=== PATIENT | male | born 1990 | race Caucasian/White ===

== ENCOUNTER 2016-08-28 12:48 | Emergency (ER) | payer OTHER ==
[~2016-08-28] VITALS: Ht 182.9 cm; Wt 148.0 kg
[~2016-08-28 12:48] MED LIST: BACTDS PO; CEPH-443 PO; HUM100VI14 SC; INSU100V18 SC; LISI40TA9 PO; MTF1000T PO; NAPR-260 PO
[2016-08-28 12:53] VITALS: Ht 182.9 cm; Wt 148.0 kg
[2016-08-28] MEDS ORDERED: SULF1TAB31 PO (14:19)
[2016-08-28] MEDS ORDERED: CEPH-443 PO (14:20)
[2016-08-28] MEDS ORDERED: MTF1000T PO (14:22)
[2016-08-28] MEDS ORDERED: LANT3I SC (14:23)
[2016-08-28] MEDS ORDERED: LISI40TA9 PO (14:24)
--- NOTE | 2016-08-28 14:30 | ERD ---
ER Documentation Chief Complaint Date/Time DATE: 08/28/16 TIME: 14:27 Chief Complaint abcess on lower back , also needs med refill on diabetic and htn meds HPI Is a 25-year-old male who presents the emergency department today for a medication refill of his hypertensive and diabetes medications as well as an abscess on his buttock. States he is unable to see his primary care doctor until the end of the month because he changed health insurance. States he has been out of his medication for "a week or so" denies any headache, dizziness, blurred vision, fevers or chills, nausea vomiting or diarrhea. ROS All systems reviewed and are negative except as per history of present illness. Medications Home Meds Active Scripts Lisinopril* (Lisinopril*) 40 Mg Tablet, 40 MG PO BID, #60 TAB Prov:SETH MIN-C 08/28/16 Insulin Glargine* (Lantus*) 100 Unit/Ml Soln, 50 UNIT SC QHS, #1 VIAL Prov:SETH MINC 08/28/16 Metformin* (Glucophage*) 1,000 Mg Tablet, 1000 MG PO BID, #60 TAB Prov:SETH MINC 08/28/16 Cephalexin* (Keflex*) 500 Mg Capsule, 500 MG PO QID for 7 Days, CAP Prov:SETH MIN-C 08/28/16 Sulfamethoxazole/Trimethoprim* (Bactrim Ds* Tablet) 1 Each Tablet, 1 TAB PO BID for 7 Days, #14 TAB Prov:SETH MINC 08/28/16 Naproxen* (Naprosyn*) 500 Mg Tablet, 500 MG PO BID Y for PAIN AND/OR INFLAMMATION, #30 TAB Prov:SETH MIN-C 01/01/16 Cephalexin* (Keflex*) 500 Mg Capsule, 500 MG PO QID for 7 Days, CAP Prov:SETH MIN-C 01/01/16 Sulfamethoxazole-Trimethoprim* (Bactrim* DS) 800-160 Mg Tab, 1 TAB PO BID for 7 Days, TAB Prov:SETH MINC 01/01/16 Insulin Human Isophan/Regular (Novolin 70/30) 100 Units/Ml Susp, 1 UNIT SC BID Y for give per low sliding scale bid for 30 Days, EA Prov:RICKI FRANZ NP 12/31/14 Lisinopril* (Lisinopril*) 40 Mg Tablet, 40 MG PO BID for 30 Days, TAB Prov:RICKI FRANZ NP 12/31/14 Metformin* (Glucophage*) 1,000 Mg Tablet, 1000 MG PO BID, #60 TAB Prov:RICKI FRANZ NP 12/31/14 Insuln Asp Prt/Insulin Aspart (Novolog Mix 70-30 Vial*) 100 Units/Ml Vial, 1 BOTTLE SC WITH BREAKFAST, #1 VIAL Prov:ZULEMA CHANG DO 12/01/14 Lisinopril* (Lisinopril*) 40 Mg Tablet, 40 MG PO BID, #60 TAB 1 Refill Prov:ZULEMA CHANG DO 12/01/14 Metformin* (Glucophage*) 1,000 Mg Tablet, 1000 MG PO BID, #60 TAB 1 Refill Prov:ZULEMA CHANG DO 12/01/14 Reported Medications Insuln Asp Prt/Insulin Aspart (Novolog Mix 70-30 Vial*) 100 Units/Ml Vial, 60 UNIT SC PM, VIAL 04/10/14 Insuln Asp Prt/Insulin Aspart (Novolog Mix 70-30 Vial*) 100 Units/Ml Vial, 84 UNIT SC AM, VIAL 04/10/14 Allergies Allergies: Coded Allergies: No Known Drug Allergy (Verified Allergy, Mild, 04/09/14) PMhx/Soc History of Surgery: No Anesthesia Reaction: No Hx Neurological Disorder: No Hx Respiratory Disorders: No Hx Cardiac Disorders: Yes (HTN) Hx Psychiatric Problems: No Hx Miscellaneous Medical Probl: Yes (HTN, DM) Hx Alcohol Use: No Hx Substance Use: No Hx Tobacco Use: No Smoking Status: Never smoker Physical Exam Vitals Vital Signs Date Time Temp Pulse Resp B/P Pulse Ox O2 Delivery O2 Flow Rate FiO2 08/28/16 12:53 98.1 88 18 172/90 98 Physical Exam Const: Obese, no acute distress Head: Atraumatic Eyes: Normal Conjunctiva ENT: Normal External Ears, Nose and Mouth. Neck: Full range of motion..~ No meningismus. Resp: Clear to auscultation bilaterally Cardio: Regular rate and rhythm, no murmurs Abd: Soft, non tender, non distended. Normal bowel sounds Skin: Evidence of 0.25 cm pilonidal cyst that is already draining. No localized erythema or warmth. Back: No midline or flank tenderness Ext: No cyanosis, or edema Neur: Awake and alert Psych: Normal Mood and Affect Procedures/MDM Is a 25-year-old male presents to the emergency department today for medication refill of his hypertensive and diabetes medications as well as an abscess on his buttocks. On physical exam patient had a 0.25 cm pilonidal cyst that is already draining. I do not feel he requires incision and drainage at this time. Patient is afebrile and otherwise well-appearing. Patient had these pilonidal cyst in the back. He has been instructed to follow-up with a primary care doctor for referral to general surgery. Patient had no other complaints at this time. I do not feel he requires further workup or imaging at this time. Patient indicated he takes metformin 1000 twice daily, Lantus 50 units every night and lisinopril 40 mg 1 tablet twice daily. Patient was given refills on this medication. Patient was also given Bactrim and Keflex for the pilonidal and instructed to return in 48 hours for wound check if no improvement in symptoms or worsening of symptoms. At this time the patient is stable for discharge and outpatient management. Patient should follow up with their PCP in the next 1-2 days. They may return to the emergency department sooner for any persistent or worsening of symptoms. Patient understood and agreed with the plan. Departure Diagnosis: Primary Impression: Abscess Additional Impression: Encounter for medication refill Condition: Fair Patient Instructions: Taking Medicine Safely, Pilonidal Cyst, Infected (Abx Only) Referrals: your PCP Additional Instructions: Call your primary care doctor TOMORROW for an appointment during the next 1-2 days.See the doctor sooner or return here if your condition worsens before your appointment time. Make an appointment for the end of the month for your primary care doctor and try to be seen sooner Take your medications as you have been prescribed by your primary care doctor Return in 48 hours for wound check if no improvement in symptoms or worsening of symptoms SETH MIN PA-C Aug 28, 2016 14:29
== END 2016-08-28 14:55 | disposition home or self-care (01) ==
LOC: FTE 12:48
DX: L02.212 Cutaneous abscess of back [any part, except buttock and flank] (principal); I10 Essential (primary) hypertension; E11.9 Type 2 diabetes mellitus without complications; Z76.0 Encounter for issue of repeat prescription; Z79.4 Long term (current) use of insulin; Z79.84 Long term (current) use of oral hypoglycemic drugs
CPT/HCPCS: 99281

== ENCOUNTER 2016-09-07 10:11 | Emergency (ER) | payer OTHER ==
[~2016-09-07] VITALS: Ht 182.9 cm; Wt 146.0 kg
[~2016-09-07 10:11] MED LIST changes: +LANT3I SC; +SULF1TAB31 PO
[2016-09-07 10:13] VITALS: Ht 182.9 cm; Wt 146.0 kg
[2016-09-07] MEDS ORDERED: LANT3I SC (12:00)
[2016-09-07] MEDS ORDERED: CARB15DR50 LEFT EAR (12:01)
[2016-09-07 12:36] VITALS: BP 137/73; PULSE 90; RESP 20; TEMP 98
--- NOTE | 2016-09-07 12:42 | ERD ---
ER Documentation Chief Complaint Date/Time DATE: 09/07/16 TIME: 12:38 Chief Complaint Complains of left ear pain x 3 days HPI 25-year-old male patient with a past medical history of diabetes and hypertension presents the ED complaining of water in his left ear. Reports that he has muffled hearing left ear. States that he was at the beach a few days ago and was swimming. Denies any chest pain, shortness of breath, polyuria , polydipsia, left ear pain, fever, chills, abdominal pain. Reports that he also takes Lantus and is here for a medication refill. States that he change his medical insurance, therefore is still waiting to see his primary care physician. ROS All systems reviewed and are negative except as per history of present illness. Medications Home Meds Active Scripts Carbamide Peroxide* (Debrox*) 6.5% - 15 Ml Drops, 10 DROP LEFT EAR BID, #1 BOTTLE Prov:ESPERANZA ISLAS-C 09/07/16 Insulin Glargine* (Lantus*) 100 Unit/Ml Soln, 5 UNIT SC QHS, #1 VIAL Prov:ESPERANZA ISLAS-C 09/07/16 Lisinopril* (Lisinopril*) 40 Mg Tablet, 40 MG PO BID, #60 TAB Prov:SETH MIN-C 08/28/16 Insulin Glargine* (Lantus*) 100 Unit/Ml Soln, 50 UNIT SC QHS, #1 VIAL Prov:SETH MIN-C 08/28/16 Metformin* (Glucophage*) 1,000 Mg Tablet, 1000 MG PO BID, #60 TAB Prov:SETH MIN-C 08/28/16 Cephalexin* (Keflex*) 500 Mg Capsule, 500 MG PO QID for 7 Days, CAP Prov:SETH MIN-C 08/28/16 Sulfamethoxazole/Trimethoprim* (Bactrim Ds* Tablet) 1 Each Tablet, 1 TAB PO BID for 7 Days, #14 TAB Prov:SETH MIN-C 08/28/16 Naproxen* (Naprosyn*) 500 Mg Tablet, 500 MG PO BID Y for PAIN AND/OR INFLAMMATION, #30 TAB Prov:SETH MIN PA-C 01/01/16 Cephalexin* (Keflex*) 500 Mg Capsule, 500 MG PO QID for 7 Days, CAP Prov:SETH MIN PA-C 01/01/16 Sulfamethoxazole-Trimethoprim* (Bactrim* DS) 800-160 Mg Tab, 1 TAB PO BID for 7 Days, TAB Prov:SETH MIN PA-C 01/01/16 Insulin Human Isophan/Regular (Novolin 70/30) 100 Units/Ml Susp, 1 UNIT SC BID Y for give per low sliding scale bid for 30 Days, EA Prov:RICKI FRANZ NP 12/31/14 Lisinopril* (Lisinopril*) 40 Mg Tablet, 40 MG PO BID for 30 Days, TAB Prov:RICKI FRANZ NP 12/31/14 Metformin* (Glucophage*) 1,000 Mg Tablet, 1000 MG PO BID, #60 TAB Prov:RICKI FRANZ NP 12/31/14 Insuln Asp Prt/Insulin Aspart (Novolog Mix 70-30 Vial*) 100 Units/Ml Vial, 1 BOTTLE SC WITH BREAKFAST, #1 VIAL Prov:ZULEMA CHANG DO 12/01/14 Lisinopril* (Lisinopril*) 40 Mg Tablet, 40 MG PO BID, #60 TAB 1 Refill Prov:ZULEMA CHANG DO 12/01/14 Metformin* (Glucophage*) 1,000 Mg Tablet, 1000 MG PO BID, #60 TAB 1 Refill Prov:ZULEMA CHANG DO 12/01/14 Reported Medications Insuln Asp Prt/Insulin Aspart (Novolog Mix 70-30 Vial*) 100 Units/Ml Vial, 60 UNIT SC PM, VIAL 04/10/14 Insuln Asp Prt/Insulin Aspart (Novolog Mix 70-30 Vial*) 100 Units/Ml Vial, 84 UNIT SC AM, VIAL 04/10/14 Allergies Allergies: Coded Allergies: No Known Drug Allergy (Verified Allergy, Mild, 09/07/16) PMhx/Soc History of Surgery: No Anesthesia Reaction: No Hx Neurological Disorder: No Hx Respiratory Disorders: No Hx Cardiac Disorders: Yes (HTN) Hx Psychiatric Problems: No Hx Miscellaneous Medical Probl: Yes (HTN, DM) Hx Alcohol Use: No Hx Substance Use: No Hx Tobacco Use: No Physical Exam Vitals Vital Signs Date Time Temp Pulse Resp B/P Pulse Ox O2 Delivery O2 Flow Rate FiO2 09/07/16 12:36 98.0 90 20 137/73 96 Room Air 09/07/16 10:13 97.9 92 20 175/85 97 Physical Exam Const: [id number], well-nourished. In no acute distress. Head: Atraumatic, normocephalic Eyes: Normal Conjunctiva without injection. No purulent discharge. PERRL. EOMI ENT: Normal external ear. Bilateral Ear canal without erythema. Right Tympanic membrane pearly rosas without effusion or bulging. Moist clear cerumen noted on the left ear canal impacting TM. Nasal canal clear with normal turbinates. Moist oropharynx without tonsillar exudates. No tenderness palpation of the tragus or mastoid. Non-erythematous pharynx. Uvula midline. No drooling. No trismus. Neck: Full range of motion. No meningismus. No cervical lymphadenopathy. Resp: Clear to auscultation bilaterally. No wheezing, rhonchi, rales, or crackles. No accessory muscle use. No retractions. Cardio: Regular rate and rhythm. No murmurs, rubs or gallops. Abd: Soft, non tender, non distended. Normal bowel sounds. No palpable masses. No rebound tenderness. No guarding. Skin: No petechiae or rashes Back: No midline tenderness. No CVA tenderness. Ext: No cyanosis, or edema. Neur: Awake and alert. Psych: Normal Mood and Affect Procedures/MDM This is a 25-year-old male patient with no significant past medical history presents the ED complaining of feeling like water is in his left ear after swimming. Patient is afebrile and nontoxic-appearing. An attempt to clear out the wet left clear cerumen using peroxide and normal saline was performed here in the ED. Patient reports that he had slight improvement of his symptoms. Patient has been on antibiotics for an abscess within the last 2 weeks, there are no signs of otitis media or otitis externa, therefore at this time I believe that patient needs antibiotics at this time Observation is recommended at this time for any signs of infection. Low suspicion for mastoiditis. Patient states that he feels better. Patient's physical exam include lungs which were clear to auscultation and a normal pulse oximetry. Patient is speaking in full sentences. There is a low suspicion for pneumonia, epiglottitis , croup, viral/strep pharyngitis, sinusitis, peritonsillar abscess, retropharyngeal abscess, meningitis, sepsis, acute abdomen or other emergent conditions. Discharge medications: Debrox, Refill on Syringes and Lantus. Follow up with primary care physician in 1-2 days. Instructed patient to return to the ED sooner for any worsening symptoms such as worsening ear pain, fever, ear discharge, etc. Patient's questions were answered. Patient understood and agreed with discharge plan. Patient discharged stable. Departure Diagnosis: Primary Impression: Encounter for medication refill Additional Impression: Water in ear Condition: Stable Patient Instructions: Taking Medicine Safely, Managing Diabetes: The A1C Test Referrals: [facility] YOU HAVE RECEIVED A MEDICAL SCREENING EXAM AND THE RESULTS INDICATE THAT YOU DO NOT HAVE A CONDITION THAT REQUIRES URGENT TREATMENT IN THE EMERGENCY DEPARTMENT. FURTHER EVALUATION AND TREATMENT OF YOUR CONDITION CAN WAIT UNTIL YOU ARE SEEN IN YOUR DOCTORS OFFICE WITHIN THE NEXT 1-2 DAYS. IT IS YOUR RESPONSIBILITY TO MAKE AN APPOINTMENT FOR FOL-UP CARE. IF YOU HAVE A PRIMARY DOCTOR --you should call your primary doctor and schedule an appointment IF YOU DO NOT HAVE A PRIMARY DOCTOR YOU CAN CALL OUR PHYSICIAN REFERRAL HOTLINE AT IF YOU CAN NOT AFFORD TO SEE A PHYSICIAN YOU CAN CHOSE FROM THE FOLLOWING [facility] [address] [facility] [facility] [address] [facility] [facility] [address] [facility] [address] [facility]. [facility] [address] [facility]. [facility]. [address] [facility] [facility] YOU HAVE RECEIVED A MEDICAL SCREENING EXAM AND THE RESULTS INDICATE THAT YOU DO NOT HAVE A CONDITION THAT REQUIRES URGENT TREATMENT IN THE EMERGENCY DEPARTMENT. FURTHER EVALUATION AND TREATMENT OF YOUR CONDITION CAN WAIT UNTIL YOU ARE SEEN IN YOUR DOCTORS OFFICE WITHIN THE NEXT 1-2 DAYS. IT IS YOUR RESPONSIBILITY TO MAKE AN APPOINTMENT FOR FOLOW-UP CARE. IF YOU HAVE A PRIMARY DOCTOR --you should call your primary doctor and schedule and appointment IF YOU DO NOT HAVE A PRIMARY DOCTOR YOU CAN CALL OUR PHYSICIAN REFERRAL HOTLINE AT . IF YOU CAN NOT AFFORD TO SEE A PHYSICIAN YOU CAN CHOSE FROM THE FOLLOWING [facility] INSTITUTIONS: [facility] [address] [place] [address] [facility] [address] [place], [place] [id number] [place] [address] [address] [place] [address] [facility] Additional Instructions: Call your primary care doctor TOMORROW for an appointment during the next 2-3 days.See the doctor sooner or return here if your condition worsens before your appointment time. ESPERANZA ISLAS PA-C Sep 07, 2016 12:42
== END 2016-09-07 12:36 | disposition home or self-care (01) ==
LOC: FTE 10:11
DX: H92.02 Otalgia, left ear (principal); I10 Essential (primary) hypertension; E11.9 Type 2 diabetes mellitus without complications; Z76.0 Encounter for issue of repeat prescription; Z79.4 Long term (current) use of insulin; Z79.84 Long term (current) use of oral hypoglycemic drugs
CPT/HCPCS: 99283

== ENCOUNTER 2016-12-10 19:18 | Emergency (ER) | payer BC, OTHER ==
[~2016-12-10] VITALS: Ht 185.4 cm; Wt 148.5 kg
[~2016-12-10 19:18] MED LIST changes: +CARB15DR50 LEFT EAR
[2016-12-10 19:31] VITALS: Ht 185.4 cm; Wt 148.5 kg
[2016-12-10] MEDS ORDERED: LISI40TA9 PO (20:52)
[2016-12-10] MEDS ORDERED: LANT3I SC ×2 (20:52→20:54)
[2016-12-10] MEDS ORDERED: MTF1000T PO (20:52)
[2016-12-10] MEDS ORDERED: metFORMIN 500 MG TAB PO ONE (21:30)
[2016-12-10 21:41] LABS: BASOPHILS % 0.6 % (0.0-2.0); EOSINOPHILS # 0.2 10^3/ul (0.0-0.5); EOSINOPHILS % 2.2 % (0.0-7.0); HEMOGLOBIN 16.1 g/dl (14.0-18.0); LYMPHOCYTES # 2.1 10^3/ul (0.8-2.9); LYMPHOCYTES % 30.7 % (15.0-51.0); MEAN CORPUSCULAR HGB CONC 34.3 g/dl (32.0-37.0); MEAN CORPUSCULAR VOLUME 87.5 fl (82.0-101.0); MEAN PLATELET VOLUME 9.2 fl (7.4-10.4); MONOCYTE # 0.6 10^3/ul (0.3-0.9); MONOCYTES % 8.5 % (0.0-11.0); NEUTROPHILS % 57.6 % (39.0-77.0); PLATELET COUNT 301 10^3/UL (140-415); RED BLOOD COUNT 5.37 10^6/ul (4.70-6.10); RED CELL DISTRIBUTION WIDTH 12.2 % (11.5-14.5); WHITE BLOOD COUNT 6.9 10^3/ul (4.8-10.8)
[2016-12-10 22:02] LABS: ALBUMIN 4.5 g/dl (3.3-4.9); ALBUMIN/GLOBULIN RATIO 1.4; BILIRUBIN,INDIRECT 0.3 mg/dl (0-1.1); BILIRUBIN,TOTAL 0.3 mg/dl (0.2-1.3); CALCIUM 9.8 mg/dl (8.4-10.2); CREATININE 0.54 mg/dl (0.61-1.24); POTASSIUM 4.4 mmol/L (3.5-5.1); TOTAL PROTEIN 7.7 g/dl (6.1-8.1)
--- NOTE | 2016-12-10 22:16 | ERD ---
ER Documentation Chief Complaint Date/Time DATE: 12/10/16 TIME: 22:15 Chief Complaint need Metformin, Lantus, Lisinopril refill. No PMD at this time. med x 2wks HPI Patient is a 26-year-old male has a history of hypertension and diabetes and he has been 2 weeks without his medications and is here requesting a refill. Because of insurance reason is a new doctor so has not yet seen his primary care doctor. He has no other complaints. ROS All systems reviewed and are negative except as per history of present illness. Medications Home Meds Active Scripts Insulin Glargine* (Lantus*) 100 Unit/Ml Soln, 50 UNIT SC DAILY, #1 VIAL Prov:ADRIAN LUTHER PA-C 12/10/16 Insulin Glargine* (Lantus*) 100 Unit/Ml Soln, 50 UNIT SC DAILY, #1 VIAL Prov:ADRIAN LUTHER PA-C 12/10/16 Lisinopril* (Lisinopril*) 40 Mg Tablet, 40 MG PO BID, #60 TAB Prov:ADRIAN LUTHER PA-C 12/10/16 Metformin* (Glucophage*) 1,000 Mg Tablet, 1000 MG PO BID, #60 TAB Prov:ADRIAN LUTHER PA-C 12/10/16 Carbamide Peroxide* (Debrox*) 6.5% - 15 Ml Drops, 10 DROP LEFT EAR BID, #1 BOTTLE Prov:ESPERANZA ISLAS PA-C 09/07/16 Insulin Glargine* (Lantus*) 100 Unit/Ml Soln, 5 UNIT SC QHS, #1 VIAL Prov:ESPERANZA ISLAS PA-C 09/07/16 Lisinopril* (Lisinopril*) 40 Mg Tablet, 40 MG PO BID, #60 TAB Prov:SETH MIN PA-C 08/28/16 Insulin Glargine* (Lantus*) 100 Unit/Ml Soln, 50 UNIT SC QHS, #1 VIAL Prov:SETH MIN PA-C 08/28/16 Metformin* (Glucophage*) 1,000 Mg Tablet, 1000 MG PO BID, #60 TAB Prov:SETH MIN PA-C 08/28/16 Cephalexin* (Keflex*) 500 Mg Capsule, 500 MG PO QID for 7 Days, CAP Prov:SETH MIN-C 08/28/16 Sulfamethoxazole/Trimethoprim* (Bactrim Ds* Tablet) 1 Each Tablet, 1 TAB PO BID for 7 Days, #14 TAB Prov:SETH MIN-C 08/28/16 Naproxen* (Naprosyn*) 500 Mg Tablet, 500 MG PO BID Y for PAIN AND/OR INFLAMMATION, #30 TAB Prov:SETH MIN-C 01/01/16 Cephalexin* (Keflex*) 500 Mg Capsule, 500 MG PO QID for 7 Days, CAP Prov:SETH MIN-C 01/01/16 Sulfamethoxazole-Trimethoprim* (Bactrim* DS) 800-160 Mg Tab, 1 TAB PO BID for 7 Days, TAB Prov:SETH MIN-C 01/01/16 Insulin Human Isophan/Regular (Novolin 70/30) 100 Units/Ml Susp, 1 UNIT SC BID Y for give per low sliding scale bid for 30 Days, EA Prov:RICKI FRANZ NP 12/31/14 Lisinopril* (Lisinopril*) 40 Mg Tablet, 40 MG PO BID for 30 Days, TAB Prov:RICKI FRANZ NP 12/31/14 Metformin* (Glucophage*) 1,000 Mg Tablet, 1000 MG PO BID, #60 TAB Prov:RICKI FRANZ NP 12/31/14 Insuln Asp Prt/Insulin Aspart (Novolog Mix 70-30 Vial*) 100 Units/Ml Vial, 1 BOTTLE SC WITH BREAKFAST, #1 VIAL Prov:ZULEMA CHANG DO 12/01/14 Lisinopril* (Lisinopril*) 40 Mg Tablet, 40 MG PO BID, #60 TAB 1 Refill Prov:ZULEMA CHANG DO 12/01/14 Metformin* (Glucophage*) 1,000 Mg Tablet, 1000 MG PO BID, #60 TAB 1 Refill Prov:ZULEMA CHANG DO 12/01/14 Reported Medications Insuln Asp Prt/Insulin Aspart (Novolog Mix 70-30 Vial*) 100 Units/Ml Vial, 60 UNIT SC PM, VIAL 04/10/14 Insuln Asp Prt/Insulin Aspart (Novolog Mix 70-30 Vial*) 100 Units/Ml Vial, 84 UNIT SC AM, VIAL 04/10/14 Allergies Allergies: Coded Allergies: No Known Drug Allergy (Verified Allergy, Mild, 12/10/16) PMhx/Soc Medical and Surgical Hx: pt denies Surgical Hx History of Surgery: No Anesthesia Reaction: No Hx Neurological Disorder: No Hx Respiratory Disorders: No Hx Cardiac Disorders: Yes (HTN) Hx Psychiatric Problems: No Hx Miscellaneous Medical Probl: Yes ( DM) Hx Alcohol Use: No Hx Substance Use: No Hx Tobacco Use: No Smoking Status: Never smoker FmHx Family History: diabetes Physical Exam Vitals Vital Signs Date Time Temp Pulse Resp B/P Pulse Ox O2 Delivery O2 Flow Rate FiO2 12/10/16 19:31 99.0 91 18 178/95 97 Physical Exam Const: [] Head: Atraumatic Eyes: Normal Conjunctiva ENT: Normal External Ears, Nose and Mouth. Neck: Full range of motion..~ No meningismus. Resp: Clear to auscultation bilaterally Cardio: Regular rate and rhythm, no murmurs Abd: Soft, non tender, non distended. Normal bowel sounds Skin: No petechiae or rashes Back: No midline or flank tenderness Ext: No cyanosis, or edema Neur: Awake and alert Psych: Normal Mood and Affect Result Diagram: 12/10/16211912/10/162119 Results 24 hrs Laboratory Tests Test 12/10/16 21:13 12/10/16 21:20 Bedside Glucose 365mg/dL White Blood Count 6.910^3/ul Red Blood Count 5.3710^6/ul Hemoglobin 16.1g/dl Hematocrit 47.0% Mean Corpuscular Volume 87.5fl Mean Corpuscular Hemoglobin 30.0pg Mean Corpuscular Hemoglobin Concent 34.3g/dl Red Cell Distribution Width 12.2% Platelet Count 83460^3/UL Mean Platelet Volume 9.2fl Neutrophils % 57.6% Lymphocytes % 30.7% Monocytes % 8.5% Eosinophils % 2.2% Basophils % 0.6% Nucleated Red Blood Cells % 0.0/100WBC Neutrophils # 4.010^3/ul Lymphocytes # 2.110^3/ul Monocytes # 0.610^3/ul Eosinophils # 0.210^3/ul Basophils # 0.010^3/ul Nucleated Red Blood Cells # 0.010^3/ul Sodium Level 140mmol/L Potassium Level 4.4mmol/L Chloride Level 98mmol/L Carbon Dioxide Level 30mmol/L Anion Gap 16 Blood Urea Nitrogen 12mg/dl Creatinine 0.54mg/dl Glucose Level 337mg/dl Calcium Level 9.8mg/dl Total Bilirubin 0.3mg/dl Direct Bilirubin 0.00mg/dl Indirect Bilirubin 0.3mg/dl Aspartate Amino Transf (AST/SGOT) 29IU/L Alanine Aminotransferase (ALT/SGPT) 63IU/L Alkaline Phosphatase 71IU/L Total Protein 7.7g/dl Albumin 4.5g/dl Globulin 3.20g/dl Albumin/Globulin Ratio 1.40 Current Medications Medications (Trade) Dose Ordered Sig/Thea Route PRN Reason Start Time Stop Time Status Last Admin Dose Admin Metformin HCl (Glucophage) 1,000 mg ONCE ONCE PO 12/10/16 21:30 12/10/16 21:31 DC 12/10/16 21:57 Procedures/MDM Patient here for med refill. Accu-Chek is greater than 350 so we cale CBC and chemistry panel and there is no evidence of DKA. He has no complaints and is well-appearing in no distress. He was discharged with medication refills of his metformin, Lantus, lisinopril, and syringes. Patient counseled regarding my diagnostic impression and care plan. Prior to discharge all questions answered. Pt agrees with treatment plan and understands strict return precautions. Pt is instructed to follow up with primary care provider within 24- 48 hours. Precautionary instructions provided including instructions to return to the ER if not improving or for any worsening or changing symptoms or concerns. Departure Diagnosis: Primary Impression: Hypertension Additional Impressions: Encounter for medication refill Diabetes Condition: Stable Patient Instructions: Taking Medicine Safely Additional Instructions: Call your primary care doctor TOMORROW for an appointment during the next 1-2 days.See the doctor sooner or return here if your condition worsens before your appointment time. ADRIAN LUTHER PA-C Dec 10, 2016 22:16
[2016-12-10 22:24] LABS: ADD UMIC YES; UR ASCORBIC ACID NEGATIVE (NEGATIVE); UR BACTERIA FEW /HPF (NONE SEEN); UR BILIRUBIN (Dip) NEGATIVE (NEGATIVE); UR BLOOD (Dip) 2+ mg/dL (NEGATIVE); UR BUDDING YEAST FEW /HPF (NONE SEEN); UR CLARITY CLEAR (CLEAR); UR COLOR STRAW (YELLOW); UR GLUCOSE (Dip) 3+ mg/dL (NEGATIVE); UR KETONES (Dip) TRACE mg/dL (NEGATIVE); UR LEUKOCYTE ESTERASE (Dip) 2+ Leu/ul (NEGATIVE); UR NITRITE (Dip) NEGATIVE (NEGATIVE); UR RBC 6 /HPF (0-5); UR SPECIFIC GRAVITY (Dip) 1.035 (1.003-1.030); UR TOTAL PROTEIN (Dip) 1+ mg/dl (NEGATIVE); UR UROBILINOGEN (Dip) NEGATIVE (NEGATIVE)
[2016-12-10] MEDS ORDERED: CEPH-443 PO (22:26)
[2016-12-10 22:34] VITALS: BP 164/78; PULSE 80; RESP 18; TEMP 98.2
== END 2016-12-10 22:36 | disposition home or self-care (01) ==
LOC: FTE 19:18
DX: I10 Essential (primary) hypertension (principal); E11.9 Type 2 diabetes mellitus without complications; Z79.4 Long term (current) use of insulin; Z79.84 Long term (current) use of oral hypoglycemic drugs
CPT/HCPCS: 80053; 81001; 82962; 85025; Z7502; Z7610; 99283

== ENCOUNTER 2018-01-11 08:55 | Emergency (ER) | END 2018-01-11 09:48 | disposition home or self-care (01) ==

== ENCOUNTER 2018-10-24 15:34 | Emergency (ER) | payer BC ==
[~2018-10-24] VITALS: Ht 182.9 cm; Wt 149.5 kg
[~2018-10-24 15:34] MED LIST changes: +ACET325T33 PO; +BACL10TA PO; +ELIM TOP; +IBUP-1542 PO; +INSU100I33 SC; +LISI40TA3 PO; -LISI40TA9 PO; -NAPR-260 PO; +NAPR-985 PO
[2018-10-24 15:42] VITALS: BP 165/86; PULSE 91; RESP 18; Ht 182.9 cm; Wt 149.5 kg
== END 2018-10-24 16:31 | disposition home or self-care (01) ==
LOC: E/R 15:34
DX: M54.5 Low back pain (principal); I10 Essential (primary) hypertension; E11.9 Type 2 diabetes mellitus without complications; Z79.4 Long term (current) use of insulin
CPT/HCPCS: 99283